=== PATIENT | male | born 1955 | race Caucasian/White ===

== ENCOUNTER 2022-01-12 13:28 | Emergency (ER) | payer MEDICARE, OTHER ==
[~2022-01-12] VITALS: Ht 182.9 cm; Wt 142.0 kg
[2022-01-12 13:28] VITALS: BP 180/89
[~2022-01-12 13:28] MED LIST: AMOX-999 PO; VANC125C12 PO
--- NOTE | 2022-01-12 13:28 | NUR ---
[facility] ALS TO ER BED 1
[2022-01-12 13:30] VITALS: BP 180/89
--- NOTE | 2022-01-12 13:30 | NUR ---
66 Y/O MALE BIBA FROM HOME C/O SOB X0800 THIS AM. PER EMS, ON ARRIVAL, SPO2 79%, PT PLACED ON CPAP, INCREASED TO 94%. MEDICS APPLIED NITRO PATCH TO L UPPER CHEST AND GAVE DUONEB TREATMENT. PER MEDICS, PTS BP WAS 220/180 EN ROUTE. PT DENIES ARRIOLA, COUGH, FEVER, N/V. PT ALERT AND ORIENTED X4. PMH:CHF, COPD NKDA
--- NOTE | 2022-01-12 13:30 | NUR ---
PLACED ON A [facility] V[address] BLOSSOM PARKINSON AWARE OF SETTINGS
--- NOTE | 2022-01-12 13:32 | NUR ---
DR JOHN AT BEDSIDE EVALUATING PT
[2022-01-12] MEDS ORDERED: ALBUTEROL SULFATE/IPRATROPIU 3 ML SOL IH ONE ×2 (13:34→13:35)
[2022-01-12] MEDS ORDERED: MAG SULF 2000 MG/WATER PREMIX 50 ML IV ONE (13:35)
[2022-01-12] MEDS ORDERED: NITROGLYCERIN 50 MG/D5W PREMIX 250 ML IV ONE (13:35)
[2022-01-12] MEDS ORDERED: methylPREDNISolone SS 125 MG/2 ML VIAL IVP ONE (13:35)
--- NOTE | 2022-01-12 13:38 | NUR ---
[facility]ERAP[facility] VIA INLINE AND RESPIRATORY DRUGS GIVEN ORDERED
[2022-01-12 14:18] LABS: BASOPHILS # (AUTO) 0.1 K/uL (0.00-0.22); BASOPHILS % (AUTO) 0.7 % (0.0-2.0); EOSINOPHILS # (AUTO) 0.1 K/uL (0-0.4); EOSINOPHILS % (AUTO) 0.6 % (0.0-4.0); HEMATOCRIT 47.9 % (36-52); HEMOGLOBIN 15.9 g/dL (12.0-18.0); LYMPHOCYTES % (AUTO) 10.9 % (20.5-51.1); MEAN CORPUSCULAR HEMOGLOBIN 30 pg (27-31); MEAN CORPUSCULAR HGB CONC 33 g/dL (33-37); MONOCYTES # (AUTO) 0.3 K/uL (0.8-1.0); MONOCYTES % (AUTO) 3.6 % (1.7-9.3); NEUTROPHILS # (AUTO) 7.9 K/uL (1.8-7.7); NEUTROPHILS % (AUTO) 84.2 % (42.2-75.2); PLATELET COUNT (AUTO) 162 K/uL (140-450); RED BLOOD CELL COUNT(AUTO) 5.38 MIL/uL (4.20-6.10); RED CELL DISTRIBUTION WIDTH 14.7 % (11.6-13.7); WHITE BLOOD COUNT (AUTO) 9.3 K/uL (4.8-10.8)
--- NOTE | 2022-01-12 14:33 | NUR ---
XR AT PT BEDSIDE
[2022-01-12 14:46] LABS: ANION GAP 12.3 (8-16); POTASSIUM 3.3 mmol/L (3.5-5.1)
[2022-01-12 14:47] LABS: ALBUMIN 3.3 g/dL (3.4-5.0); TOTAL BILIRUBIN 0.5 mg/dL (0.0-1.0)
[2022-01-12] MEDS ORDERED: POTASSIUM CHLORIDE 10 MEQ TABER PO ONE (14:55)
[2022-01-12 15:15] VITALS: BP 134/68
[2022-01-12] MEDS ORDERED: FUROSEMIDE 40 MG/4 ML VIAL IVP ONE (15:20)
--- NOTE | 2022-01-12 15:29 | NUR ---
MISHA STONE WALKED TO LAB
--- NOTE | 2022-01-12 17:07 | NUR ---
LAB AT PT BEDSIDE
--- NOTE | 2022-01-12 18:31 | NUR ---
PT RESTING IN NO APPARENT DISTRESS, VSS, WILL CONTINUE TO MONITOR
[2022-01-12 18:45] VITALS: BP 120/61
--- NOTE | 2022-01-12 19:24 | NUR ---
Pt report given to NICHOLAS Malone. Transfer of care at this time.
--- NOTE | 2022-01-12 19:24 | NUR ---
REPORT RECEIVED FROM NICHOLAS JEAN. CONTINUITY OF PT CARE AT THIS TIME.
--- NOTE | 2022-01-12 19:28 | NUR ---
PT LAYING IN BED LOCKED IN LOWEST POSITION W X2 SIDERAILS UP FOR PT SAFETY. PT ON NITROGLYCERIN DRIP RUNNING AT 25MCG/MIN TO R AC W PATENT LINE. PT ON BIPAP TOLERATING WELL. PT DENIES ANY CHEST PAIN, SOB OR OTHER SYMPTOMS. PT CONNECTED TO MONITOR. WILL CONTINUE TO MONITOR. Addendum: 01/13/22 at 0055 by LEW PT ALSO HAS BL HAND 20 G IVs, INSERTED DURING AM SHIFT, PATENT.
[2022-01-12 22:00] VITALS: BP 140/63
--- NOTE | 2022-01-12 22:04 | NUR ---
Pt report given to NICHOLAS GIBSON FROM [facility]. Transfer of care at this time.
--- NOTE | 2022-01-12 23:21 | NUR ---
NO CHANGE IN PT STATUS. PT APPEARS TO BE RESTING W EYES CLOSED IN SUPPINE POSITION W HOB ELEVATED, BIPAP ON, CONNECTED TO MONITOR. NITROGLYCERIN RUNNING PER PROTOCOL. WILL CONTINUE TO MONITOR.
--- NOTE | 2022-01-12 23:37 | NUR ---
1450 CHANGED PATIENTS BIPAP MASK TO SIZE LARGE. FITS PATIENT BETTER LESS LEAKS
--- NOTE | 2022-01-13 00:30 | NUR ---
pt denies any pain, sob, nausea or other symptoms.
[2022-01-13 00:50] VITALS: BP 143/72
[2022-01-13 03:02] VITALS: BP 112/72
--- NOTE | 2022-01-13 03:02 | NUR ---
Patient to be transferred to [facility]. Is being transferred due to insurance request. Receiving facility has accepting physician and available space. ER physician has signed transfer form. Patient or responsible republican has agreed to transfer and signed form. Patient belongings inventoried and will be sent with patient. Copy of nursing notes, lab reports, EKG, Physicians Orders and X-rays to be sent with patient. Report called to NICHOLAS weller at receiving facility. [facility] ambulance AT BEDSIDE TRANSFERRING PT.
--- NOTE | 2022-01-13 10:43 | NUR ---
LATE ENTRY-IVPB END TIME
== END 2022-01-13 03:02 | disposition short-term general hospital (02) ==
LOC: MED 13:28
DX: J44.1 Chronic obstructive pulmonary disease with (acute) exacerbation (principal); Z20.822 Contact with and (suspected) exposure to COVID-19; I50.9 Heart failure, unspecified; J96.00 Acute respiratory failure, unspecified whether with hypoxia or hypercapnia; Z79.2 Long term (current) use of antibiotics
CPT/HCPCS: 36415; 36600; 71045; 80053; 82803; 83605; 83880; 84484; 85025; 87040; 87426; 93005; 94640; 96365; 96366; 96368; 96375; 99291; J1940; J2930; J3475; J3490; 99285